=== PATIENT | male | born 1960 | race Caucasian/White ===

== ENCOUNTER 2022-03-13 08:36 | Emergency (ER) | payer OTHER, SELFPAY ==
--- NOTE | ~2022-03-13 | XR_ITS ---
EXAMINATION: XR chest 2V 03/13/2022 09:29 INDICATION: Syncope PROCEDURE: PA and lateral views of the chest COMPARISON: No prior studies for comparison. FINDINGS: The lungs are clear. The cardiomediastinal silhouette is within normal limits. There are no pleural effusions. There is no pneumothorax suspected. IMPRESSION: 1: NO ACUTE CARDIOPULMONARY DISEASE. Reviewed, dictated and finalized at location A. MORSE INTERCEPT TECHNICIAN
[2022-03-13 08:35] VITALS: BP 149/101; PULSE 63; PULSE 65; RESP 17; TEMP 36.4; O2SAT 100
[2022-03-13 08:46] VITALS: BP 145/93; PULSE 63; RESP 13; O2SAT 99
[2022-03-13 09:02] VITALS: BP 139/75; PULSE 63; RESP 15; O2SAT 99
--- NOTE | 2022-03-13 09:14 | ECG_ITS ---
Measurements Intervals Fertile Rate: 60 P: 66 NV: 140 QRS: 33 QRSD: 82 T: 32 QT: 405 QTc: 408 Interpretive Statements SINUS RHYTHM NO PREVIOUS ECG AVAILABLE FOR COMPARISON Electronically Signed On 03-13-2022 15:06:34 TIPPLE OPERATOR by Zaria Espinoza M.D.
[2022-03-13 09:33] LABS: Basophils Percent Auto 0.5 % (0.2-1.2); Eosinophils Percent Auto 0.9 % (0-4.4); Hematocrit 41.3 % (42.0-52.0); Immature Granulocyte Absolute 0.02 K/mm3 (0.00-0.031); Immature Granulocyte Percent A 0.5 % (0-0.5); Lymphocytes Absolute Auto 0.63 K/mm3 (0.9-3.2); Lymphocytes Percent Auto 14.7 % (18.3-44.2); Mean Corpuscular HGB Conc 33.9 g/dl (32-36); Mean Corpuscular Hemoglobin 30.6 pg (26-34); Mean Corpuscular Volume 90.4 fl (80-100); Mean Platelet Volume 9.5 fl (7.4-10.4); Monocytes Absolute Auto 0.7 K/mm3 (0.1-0.6); Monocytes Percent Auto 16.6 % (2.6-8.5); Neutrophils Absolute Auto 2.9 K/mm3 (1.3-6.7); Neutrophils Percent Auto 66.8 % (45.5-73.1); Platelet Count Result 193 k/mm3 (150-375); Red Blood Count 4.57 M/mm3 (4.6-6.20); Red Cell Distribution Width 12.4 % (11.5-14.5); White Blood Count 4.3 K/mm3 (4.5-10.0)
[2022-03-13 09:34] VITALS: BP 135/77; BP 142/80; PULSE 56; PULSE 57
[2022-03-13 09:35] VITALS: BP 140/82; PULSE 64
[2022-03-13 09:44] LABS: Alanine Aminotransferase 18 U/L (6-50); Albumin Level 4.1 g/dL (3.5-5.1); Alkaline Phosphatase 76 U/L (38-126); Anion Gap 7 mmol/L (8-16); Aspartate Amino Transferase 34 U/L (17-59); Bilirubin,Total 0.6 mg/dL (0.2-1.3); Blood Urea Nitrogen 15 mg/dL (9-20); Calcium 8.2 mg/dL (8.4-10.2); Carbon Dioxide 26 mmol/L (22-30); Chloride 102 mmol/L (98-107); Estimated CRCL calculation 55 ml/min; Estimated Glomerular Filt Rate > 60; Glucose 91 mg/dL (65-110); Potassium 4.4 mmol/L (3.4-5.0); Sodium 135 mmol/L (137-145)
--- NOTE | 2022-03-13 09:59 | ED.SYNCOPE ---
HPI - Syncope General Chief Complaint: Syncope Stated Complaint: dizzy, syncope Time Seen by Provider: 03/13/22 09:14 Source: patient Mode of arrival: EMS Limitations: no limitations History of Present Illness HPI narrative: This is a 61-year-old male that presents to the emergency department after syncopal episode today. Reports he was at a work meeting this morning. He had been standing for the meeting for about 30 minutes or so. Reports he started to feel hot, but continued as the meeting was almost over. He then started to feel lightheaded and was noted to slide down the wall and passed out. Reports he had not eaten any breakfast yet today or drink much water. Also reports over the last couple of days he has been ill with cold-like symptoms. Reports fever, congestion, and cough. He has been taking [id number] cold medications as needed. He did not hit his head. He has no focal complaints at this time. Denies prodromal chest pain, shortness of breath, or palpitations. Related Data Allergies Allergy/AdvReac Type Severity Reaction Status Date / Time No Known Allergies Allergy Verified 03/13/22 08:42 Review of Systems Review of Systems: CONSTITUTIONAL: Reports fever EYES: Denies visual changes ENT: Reports rhinorrhea, congestion. Denies sore throat CARDIOVASCULAR: Denies chest pain, palpitations, or edema. RESPIRATORY: Reports cough. GASTROINTESTINAL: Denies vomiting SKIN: Denies rash MUSCULOSKELETAL: Denies joint pain, or myalgia. NEUROLOGIC: Denies numbness, or weakness. PSYCHIATRIC: Denies depression. All systems reviewed & are unremarkable except as noted in HPI and below PMFSH Past Medical History Medical History Encounter for annual general medical examination without abnormal findings in adult Nail fungal infection Skin lesion Family History Family History (Updated 08/27/21 @ 14:23 by Angelika Bowman CMA) Grandparent Diabetes mellitus Grandparent Leukemia Social History Social History (Updated 08/27/21 @ 14:24 by Angelika Bowman CMA) Smoking status: Never smoker Second hand tobacco smoke exposure: No Alcohol intake: current Drinks per week: 6 Substance use: never Substance use type: does not use 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 HEAD: Normocephalic, atraumatic. EYES: PERRLA and EOMI. ENT: Nares clear, no rhinorrhea or epistaxis. Mucous membranes moist. Oropharynx without tonsillar hypertrophy exudate or other lesions. Bilateral TMs pearly leahy non-bulging NECK: Supple. No adenopathy or masses. CHEST: Clear to auscultation. No respiratory distress. No wheezes rales or rhonchi HEART: Regular rate and rhythm. No murmur heard. Normal peripheral pulses. EXTREMITIES: Normal range of motion. No edema. SKIN: Warm, dry, no rash. NEURO: No focal deficits. Alert and oriented x3. Cranial nerves II through XII grossly intact PSYCH: Normal mood and affect Course Vital Signs Vital signs: Vital Signs Temperature 97.6 F 03/13/22 08:35 Pulse Rate 63 03/13/22 08:35 Respiratory Rate 17 03/13/22 08:35 Blood Pressure 149/101 H 03/13/22 08:35 Pulse Oximetry 100 03/13/22 08:35 Oxygen Delivery Room Air 03/13/22 08:35 Temperature 97.6 F 03/13/22 08:35 Pulse Rate 64 03/13/22 09:35 Respiratory Rate 15 03/13/22 09:02 Blood Pressure 140/82 03/13/22 09:35 Pulse Oximetry 99 03/13/22 09:02 Oxygen Delivery Room Air 03/13/22 08:35 MDM - Syncope MDM Narrative Medical decision making narrative: Patient presents to the emergency department after syncopal episode at work today. Reports he had been standing for a prolonged period of time and started to feel hot and lightheaded. He then passed out. No focal injuries or complaints at this time. Denied any prodromal chest pain, shortn
[2022-03-13] MEDS: SODIUM CHLORIDE 0.9% IV 500 ML 999 ML IV CONT (10:22)
[2022-03-13 10:58] LABS: Influenza A QL RT-PCR Positive (Negative); Influenza B QL RT-PCR Negative (Negative); SARS-CoV-2 RNA PCR Negative
[2022-03-13 11:01] LABS: Troponin I < 0.012 ng/mL (0.000-0.034)
[2022-03-13 11:34] VITALS: BP 136/83; PULSE 70; RESP 18; O2SAT 99
== END 2022-03-13 11:35 | disposition home or self-care (01) ==
PROVIDERS: Emergency Provider Physician Assistant; PCP Family Medicine
DX: J10.1 Influenza due to other identified influenza virus with other respiratory manifestations (principal); R55 Syncope and collapse; Z20.822 Contact with and (suspected) exposure to COVID-19
CPT/HCPCS: 36415; 71046; 80053; 84484; 85025; 87636; 93005; 96360; 99284; J7040

== ENCOUNTER 2024-11-16 14:00 | Outpatient (CLI) | payer OTHER, SELFPAY ==
--- OUTSIDE RECORDS SUMMARY | 2024-11-16 14:23 | XMS_ITS | Encounter Summary ---
Author Organization [facility] Address [facility] [place] [address] Care Team Providers Care Associate Software Application Engineer Name Role Phone None, Provider Primary Care Provider Radha Key MD Primary Care Provider [phone] Encounter Details Date Type Department Care Team (Late st Contact Info) Description 01/21/2017 Abstract [facility] CONVERSION [id number] [place] [address] , Generic Conversion, Social History Tobacco Use Types Packs/Day Years Used Date Smoking Tobacco: Never Assessed Sex and Gender Information Value Date Recorded Sex Assigned at Not on file 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
--- OUTSIDE RECORDS SUMMARY | 2024-11-16 14:23 | XMS_ITS | Clinical Summary ---
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 Gender Identity Not on file Sexual Orientation Not on file Plan of Treatment Health Maintenance Due Date Last Done Comments Colorectal Cancer Screening Colonoscopy (10 Years) 1960 Hepatitis C 1977 Pneumococcal Vaccine: 50+ Years (1 of 1 - PCV) 2009 Zoster Vaccines (1 of 2) 2009 COVID-19 Vaccine (3 - 2023-2 5 season) 2023 07/06/2020, 06/15/2020 DTaP, Tdap and Td Vaccines ( 3 - Td or Tdap) 06/02/2028 06/02/2018, 12/18/2006 RSV Immunization or 60+ Years (1 - 1-dose 75+ series) 2034 Meningococcal B Vaccine Aged Out No l onger eligible based on patient's age to complete this topic Meningococcal Vaccine Aged Out No naif fiona eligible based on patient's age to complete this topic RSV Immunizations Under 20 Months Aged Out No longer eligible b ased on patient's age to complete this topic Care Teams Learning Coach Relationship Specialty Start Date End Date Radha Mcintosh MD [address] [place] [address] PCP - General FAMILY PRACTICE 01/22/24
== END 2024-11-16 14:01 | disposition home or self-care (01) ==
LOC: ANHAUDIO 14:01
PROVIDERS: PCP Family Medicine; Visit Provider Student in an Organized Health Care Education/Training Program
DX: H90.3 Sensorineural hearing loss, bilateral (principal)
CPT/HCPCS: 92557; 92567

== ENCOUNTER 2025-03-14 01:14 | Day surgery (SDC) | payer OTHER, SELFPAY ==
[2025-02-21 13:25] VITALS: BMI 23.6
--- OUTSIDE RECORDS SUMMARY | 2025-03-14 01:16 | XMS_ITS | Clinical Summary ---
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 Gender Identity Not on file Sexual Orientation Not on file Plan of Treatment Health Maintenance Due Date Last Done Comments Colorectal Cancer Screening Colonoscopy (10 Years) 1959 Hepatitis C 1977 Pneumococcal Vaccine: 50+ Years (1 of 1 - PCV) 2009 Zoster Vaccines (1 of 2) 2009 COVID-19 Vaccine (3 - 2024-2 6 season) 2024 07/06/2020, 06/15/2020 Influenza Adult (#1) 2025 DTaP, Tdap and Td Vaccines ( 3 - Td or Tdap) 06/02/2028 06/02/2018, 12/18/2006 RSV Immunization or 60+ Years (1 - 1-dose 75+ series) 2034 Hepatitis A Vaccines Aged Out No long er eligible based on patient's age to complete this topic Meningococcal B Vaccine Aged Out No l onger eligible based on patient's age to complete this topic Meningococcal Vaccine Aged Out No naif fiona eligible based on patient's age to complete this topic RSV Immunizations Under 20 Months Aged Out No longer eligible b ased on patient's age to complete this topic Care Teams Player Development Manager Relationship Specialty Start Date End Date Radha Mcintosh MD [address] [place] [address] PCP - General FAMILY PRACTICE 01/22/24
--- OUTSIDE RECORDS SUMMARY | 2025-03-14 01:16 | XMS_ITS | Encounter Summary ---
Author Organization [facility] Address [facility] [place] [address] Care Team Providers Care Home Designer Name Role Phone None, Provider Primary Care Provider Radha Key MD Primary Care Provider [phone] Encounter Details Date Type Department Care Team (Late st Contact Info) Description 01/21/2017 Abstract [facility] CONVERSION [address] [place] [address] , Generic Conversion, Social History Tobacco Use Types Packs/Day Years Used Date Smoking Tobacco: Never Assessed Sex and Gender Information Value Date Recorded Sex Assigned at Not on file 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
[2025-03-14 09:02] VITALS: BP 129/76; PULSE 63; RESP 16; TEMP 36.4; O2SAT 100; BMI 23.1
[2025-03-14] MEDS: LACTATED RINGERS 1,000 ML 150 ML IV CONT (09:12)
--- NOTE | 2025-03-14 09:28 | WPDANESEPPF ---
Anes - Initial Pre Proc Eval Procedure: Operation Date: 03/14/25 10:30 Proposed Procedures p Screening Colonoscopy - Dandre Fierro MD Date/Time: 03/14/25 09:28 Surgeon: Dandre Fierro MD Pre Op Diagnosis: Screening Patient Data Age: 64 Gender: M Height: 1.73 m Weight: 69 kg Last Vital Signs Temp 36.4 C L 03/14/25 09:02 Pulse 63 03/14/25 09:02 Resp 16 03/14/25 09:02 BP 129/76 03/14/25 09:02 Pulse Ox 100 03/14/25 09:02 O2 Del Method Room Air 03/14/25 09:02 Allergies Allergy/AdvReac Type Severity Reaction Status Date / Time No Known Allergies Allergy Verified 03/14/25 09:01 Home Medications ?Medication ?Instructions ?Recorded ?Confirmed ?Type atorvastatin 20 mg tablet (Lipitor) 20 mg PO DAILY #90 tabs 11/15/24 03/14/25 Rx lisinopril 2.5 mg tablet See Rx Instructions .Route 01/08/25 03/14/25 Rx .COMPLEX #90 tabs cholecalciferol (vitamin D3) 50 5,000 unit PO DAILY 02/21/25 03/14/25 History mcg (2,000 unit) tablet (D3 DOTS) omega 3 350 mg-dha 235 mg-epa 90 1 cap PO BID 02/21/25 03/14/25 History mg-fish oil 597 mg capsule,delay rel ([place]-3) Patient hx anesthesia problems: none Family hx anesthesia problems: none Results Review: All pre-operative results and documents have been reviewed as part of the pre-operative evaluation. COUNTS INCLUDE 234 BEDS AT THE [facility] Past Medical History Medical History Hypothyroidism GERD (gastroesophageal reflux disease) Mixed hyperlipidemia Primary hypertension Encounter for annual general medical examination without abnormal findings in adult Nail fungal infection Skin lesion Family History Family History Grandparent Diabetes mellitus Grandparent Leukemia Social History Social History Smoking status: Never smoker Second hand tobacco smoke exposure: No Alcohol intake: current Drinks per week: 6 Substance use: never Substance use type: does not use Lack of Transportation: No Lack of Food: Never True Current Housing: I Have Housing Concerned About Future Housing: No Difficulty Paying Gas/Electric Bills: No Difficulty Paying for Meds: No Currently Unemployed: No Education: High School Diploma/GED Difficulty w/ Childcare or Family Care: No Occupation/Education: occupation Additional occupation/education comments: [employer] Final PreProcedure Day of Procedure 03/14/25 09:28 Patient weight: normal Heart: regular rate and rhythm Lungs: clear to auscultation Airway: Mallampati scale class II Neurological: alert and oriented Last oral intake: >/= 8 hours ASA classification: II Emergent: no Anesthetic plan: proceed Anesthesia type and monitoring: general GIVS and standard monitoring Results Review: All pre-operative results and documents have been reviewed as part of the pre-operative evaluation. Informed Consent: The patient's anesthetic plan and its attendant risks and benefits were discussed with the patient/family/POA. Questions were solicited and answers provided to the satisfaction of the patient/family/POA.
--- NOTE | 2025-03-14 10:07 | PM.IMHP2 ---
H&P: HPI History of Present Illness Date/Time: 03/14/25 10:07 Chief Complaint: Screening colonoscopy Narrative: This is the patient's first colonoscopy. There are no GI symptoms and there is no family history of colorectal cancer. Review of Systems Review of Systems: All systems reviewed & are unremarkable except as noted in HPI and below PMFSH Past Medical History Medical History Hypothyroidism GERD (gastroesophageal reflux disease) Mixed hyperlipidemia Primary hypertension Encounter for annual general medical examination without abnormal findings in adult Nail fungal infection Skin lesion Family History Family History Grandparent Diabetes mellitus Grandparent Leukemia Social History Social History Smoking status: Never smoker Second hand tobacco smoke exposure: No Alcohol intake: current Drinks per week: 6 Substance use: never Substance use type: does not use Lack of Transportation: No Lack of Food: Never True Current Housing: I Have Housing Concerned About Future Housing: No Difficulty Paying Gas/Electric Bills: No Difficulty Paying for Meds: No Currently Unemployed: No Education: High School Diploma/GED Difficulty w/ Childcare or Family Care: No 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 Medications and Allergies Home Medications ?Medication ?Instructions ?Recorded ?Confirmed ?Type atorvastatin 20 mg tablet (Lipitor) 20 mg PO DAILY #90 tabs 11/15/24 03/14/25 Rx lisinopril 2.5 mg tablet See Rx Instructions .Route 01/08/25 03/14/25 Rx .COMPLEX #90 tabs cholecalciferol (vitamin D3) 50 5,000 unit PO DAILY 02/21/25 03/14/25 History mcg (2,000 unit) tablet (D3 DOTS) omega 3 350 mg-dha 235 mg-epa 90 1 cap PO BID 02/21/25 03/14/25 History mg-fish oil 597 mg capsule,delay rel ([place]-3) Allergies Allergy/AdvReac Type Severity Reaction Status Date / Time No Known Allergies Allergy Verified 03/14/25 09:01 Vital Signs Vital Signs - 24 hr 03/14/25 09:02 Temperature 97.5 F L Pulse Rate 63 Respiratory Rate 16 Blood Pressure 129/76 Pulse Oximetry 100 Oxygen Delivery Room Air Exam Const: General: cooperative and healthy appearing Resp: Effort & Inspection: normal respiratory effort and able to speak in complete sentences Auscultation: clear to auscultation bilaterally Cardio: Rate: regular rate Rhythm: regular rhythm GI: Inspection: normal to inspection GI Palp: No No hepatosplenomegaly present Auscultation: normal bowel sounds Rectal Exam: deferred Skin: General skin exam: normal color Psych: Appearance: grossly normal Mental Status: mental status grossly normal Assessment and Plan Assessment and plan (1) Encounter for screening colonoscopy: Code(s): Z12.11 - Encounter for screening for malignant neoplasm of colon Status: Acute Assessment and Plan: The patient is deemed a good candidate for the procedure. Consent signed. Will proceed. Prior Studies I have reviewed the following patient records and this information was taken into consideration when formulating the assessment and plan.: previous labs, previous ER visits, previous hospitalizations and previous clinic visits
--- NOTE | 2025-03-14 10:24 | S_PTH ---
PATIENT: Miguel Ordonez LOC: [facility] U#:[id number] AGE/SX: 64/M ROOM: RE03/14/[address]: Dandre Fierro MD : 1960 BED: DIS: 03/14/2025 SPEC #: [id number] RECD: 03/14/25 13:28 STATUS: TUNDE REQ #: [id number] AIDE: 03/14/25 10:[address]: Dandre Fierro DEPT: [facility] Surgical RECD BY: Mary Maldonado ENTERED: 03/14/25 13:28 SP TYPE: Surgical OTHR DR: Radha McintoshMD Tissues: A - Colon Polypectomy Procedures: Hematoxylin and Eosin Stain Gross and Microscopic Level 4
[2025-03-14 10:26] VITALS: BP 98/61; PULSE 55; RESP 16; O2SAT 100
[2025-03-14 10:36] VITALS: BP 97/59; PULSE 50; RESP 16; O2SAT 100
[2025-03-14 10:46] VITALS: BP 105/65; PULSE 51; RESP 16; O2SAT 100
== END 2025-03-14 10:58 | disposition home or self-care (01) ==
PROVIDERS: PCP Family Medicine; Referring Provider Student in an Organized Health Care Education/Training Program; Visit Provider Internal Medicine Gastroenterology
PROC: 0DJD8ZZ Inspection of Lower Intestinal Tract, Via Natural or Artificial Opening Endoscopic (ICD-10-PCS; CPT 45378; principal; 2025-03-14 10:30)
DX: Z12.11 Encounter for screening for malignant neoplasm of colon (principal); K63.5 Polyp of colon
CPT/HCPCS: 45385; 88305; J2003; J2704; J7120